=== PATIENT | female | born 1990 | race Caucasian/White ===

== ENCOUNTER 2021-09-02 23:08 | Emergency (ER) | payer OTHER, SELFPAY ==
--- NOTE | ~2021-09-02 | XR_ITS ---
EXAMINATION: XR chest 2V DATE: 09/02/2021 23:42 INDICATION: Palpitations. TECHNIQUE: Frontal and lateral views of the chest were obtained. COMPARISON: CT abdomen and pelvis 10/02/2015 FINDINGS: The chest demonstrates clear lungs without pneumonia, pleural effusion, or pneumothorax. Th e heart size is normal. IMPRESSION: 1. No acute cardiopulmonary disease. Reviewed, dictated and finalized at location A.
--- NOTE | 2021-09-02 23:13 | ECG_ITS ---
Measurements Intervals [place] Rate: 78 P: 9 WA: 158 QRS: 24 QRSD: 73 T: 14 QT: 364 QTc: 415 Interpretive Statements SINUS RHYTHM NORMAL ECG Electronically Signed On 09-03-2021 6:17:19 CDT by Tin Ontiveros D.O.
[2021-09-02 23:15] VITALS: BP 145/94; PULSE 77; RESP 16; TEMP 36.3; O2SAT 100
[2021-09-03] VITALS (15 sets, daily range): BP systolic 116–138; BP diastolic 82–92; PULSE 74–82; RESP 12–23; TEMP 36.7; O2SAT 98–100
[2021-09-03 00:14] LABS: Basophils Absolute Auto 0.1 K/mm3 (0.0-0.1); Basophils Percent Auto 0.6 % (0.2-1.2); Eosinophils Absolute Auto 0.1 K/mm3 (0-0.3); Hematocrit 42.5 % (37.0-47.0); Hemoglobin 14.4 g/dL (12.0-15.0); Immature Granulocyte Absolute 0.05 K/mm3 (0.00-0.031); Immature Granulocyte Percent A 0.4 % (0-0.5); Lymphocytes Absolute Auto 3.29 K/mm3 (0.9-3.2); Lymphocytes Percent Auto 28.5 % (18.3-44.2); Mean Corpuscular HGB Conc 33.9 g/dl (32-36); Mean Corpuscular Hemoglobin 30.4 pg (26-34); Mean Corpuscular Volume 89.7 fl (80-100); Mean Platelet Volume 8.7 fl (7.4-10.4); Monocytes Absolute Auto 0.7 K/mm3 (0.1-0.6); Monocytes Percent Auto 5.8 % (2.6-8.5); Neutrophils Absolute Auto 7.3 K/mm3 (1.3-6.7); Neutrophils Percent Auto 63.7 % (45.5-73.1); Platelet Count Result 255 k/mm3 (150-375); Red Blood Count 4.74 M/mm3 (4.2-5.4); Red Cell Distribution Width 11.9 % (11.5-14.5); White Blood Count 11.5 K/mm3 (4.5-10.0)
[2021-09-03 00:28] LABS: Prothrombin Time 12.8 Seconds (11.1-14.7)
[2021-09-03 00:30] LABS: Anion Gap 8 mmol/L (8-16); Blood Urea Nitrogen 11 mg/dL (7-17); Carbon Dioxide 27 mmol/L (22-30); Chloride 106 mmol/L (98-107); Estimated CRCL calculation 101 ml/min; Estimated Glomerular Filt Rate > 60; Glucose 91 mg/dL (65-110); Potassium 3.7 mmol/L (3.4-5.0); Sodium 141 mmol/L (137-145)
[2021-09-03 00:41] LABS: Partial Thromboplastin Time 28.5 SECONDS (22.3-36.8)
[2021-09-03 00:43] LABS: Troponin I < 0.012 ng/mL (0.000-0.034)
--- NOTE | 2021-09-03 01:29 | PC.NURSE ---
Pt c/o palpitations x 2 episodes that lasted approx 30-40 seconds. 1st episode yesterday morning, reports heart felt fluttery . denies chest pain. last episode happened before arrival in ed. no distress. on airplane fueler. call light in reach.
[2021-09-03 02:40] LABS: Magnesium 2.3 mg/dL (1.6-2.3)
[2021-09-03 02:44] LABS: D Dimer 0.35 ug/mL (<0.48)
[2021-09-03 03:02] LABS: Troponin I < 0.012 ng/mL (0.000-0.034)
--- NOTE | 2021-09-03 03:06 | ED.ARRPALP ---
HPI - Arrhythmia/Palpitations General Chief Complaint: Arrhythmia/Palpitations Stated Complaint: Palpitations, nauesa Time Seen by Provider: 09/03/21 02:05 Source: patient, family and RN notes reviewed Mode of arrival: ambulatory Limitations: no limitations History of Present Illness HPI narrative: This is a 31 year old female who presents for evaluation of palpitations. Patient reports she has had 2 episodes over the past couple of days with palpitations. Tonight around 10 pm she develop feeling of heart fluttering with nausea, dizziness and jaw discomfort. This episode lasted 30 seconds. Her father states he placed pulse oximeter on her finger and it read her heart rate at 130. He also performed EKG but it was normal sinus rhythm with normal rate. Patient denies chest pain or shortness of breath. She denies having any symptoms any other time. She has not previous history of SVT or arrhythmia. Her last dose of covid vaccine was 3 weeks ago. Related Data Home Medications Medication Instructions Recorded Confirmed No Home Medications 09/03/21 09/03/21 Allergies Allergy/AdvReac Type Severity Reaction Status Date / Time No Known Allergies Allergy Verified 09/03/21 01:21 Review of Systems Review of Systems: All systems reviewed & are unremarkable except as noted in HPI and below PMFSH Past Medical History Medical History (Updated 09/03/21 @ 03:12 by Patricia Root MD) Kidney stone Family History Family History (Updated 06/14/16 @ 23:21 by DOCTOR UNKNOWN) Father Patient's father is in good health Mother Family history of type 2 diabetes mellitus Grandparent Family history of heart disease in male family member before age 55 Social History Social History Smoking status: Never smoker Alcohol intake: current Exam Const: General: no acute distress and alert Orientation/consciousness: patient oriented x3 Eyes: EOM: EOMs intact bilaterally Resp: Effort & Inspection: normal respiratory effort and no retractions Auscultation: clear to auscultation bilaterally Cardio: Rate: regular rate Rhythm: regular rhythm Heart sounds: no murmurs GI: GI Palp: Yes Soft to palpation, No Tenderness to palpation present (GI) and No Guarding due to palpation present (GI) Auscultation: normal bowel sounds Skin: General skin exam: normal color Rashes: no rashes Neuro: General: patient oriented x3, moves all extremities and CN's II-XI intact bilaterally Psych: Mental Status: mental status grossly normal Affect: normal affect Course Reevaluation(s) Reevaluation #1: I reviewed with patient and father that labs and ekg were normal. She will follow up with PCP for possible holter monitor. Date: 09/03/21 Time: 03:11 Vital Signs Vital signs: Vital Signs Temperature 97.3 F L 09/02/21 23:15 Pulse Rate 77 09/02/21 23:15 Respiratory Rate 16 09/02/21 23:15 Blood Pressure 145/94 H 09/02/21 23:15 Pulse Oximetry 100 09/02/21 23:15 Temperature 98.0 F 09/03/21 03:36 Pulse Rate 76 09/03/21 03:36 Respiratory Rate 18 09/03/21 03:36 Blood Pressure 138/82 09/03/21 03:36 Pulse Oximetry 98 09/03/21 03:36 MDM - Arrhythmia/Palpitations Lab Data Attestation: I reviewed the patient's lab results. Result diagrams: 09/02/21 23:21 09/02/21 23:21 Labs: Lab Results 09/02/21 09/02/21 09/02/21 Range/Units 23:21 23:21 23:21 WBC 11.5 H (4.5-10.0) K/mm3 RBC 4.74 (4.2-5.4) M/mm3 Hgb 14.4 (12.0-15.0) g/dL Hct 42.5 (37.0-47.0) % MCV 89.7 (80-100) fl MCH 30.4 (26-34) pg MCHC 33.9 (32-36) g/dl RDW 11.9 (11.5-14.5) % Plt Count 255 (150-375) k/mm3 MPV 8.7 (7.4-10.4) fl Immature Gran % (Auto) 0.4 (0-0.5) % Neut % (Auto) 63.7 (45.5-73.1) % Lymph % (Auto) 28.5 (18.3-44.2) % [place] % (Auto) 5.8 (2.6-8.5) % Eos % (Auto) 1.0 (0-4.4) % Baso % (Auto) 0.6
== END 2021-09-03 03:38 | disposition home or self-care (01) ==
PROVIDERS: Emergency Provider General Practice; PCP Internal Medicine
DX: R00.2 Palpitations (principal)
CPT/HCPCS: 36415; 71046; 80048; 83735; 84484; 85025; 85380; 85610; 85730; 93005; 99284

== ENCOUNTER 2023-04-26 19:47 | Emergency (ER) | payer OTHER, SELFPAY ==
[2023-04-26] VITALS (7 sets, daily range): BP systolic 121–151; BP diastolic 83–96; PULSE 69–84; RESP 15–26; TEMP 36.6; O2SAT 97–100
--- NOTE | ~2023-04-26 | CT_ITS ---
EXAMINATION: CT abdomen pelvis w con DATE: 04/27/2023 00:12 INDICATION: Epigastric pain. Left upper quadrant pain. TECHNIQUE: Computed tomography (CT) of the abdomen and pelvis was performed with 100 cc Omnipaque 350 intravenous contrast. The dose-length product was 1468.83 mGy-cm. Automated exposure control and ite rative reconstruction technique were employed. COMPARISON: CT dated 10/02/2015 FINDINGS: Lung bases are unremarkable. Heart size normal. No significant pleural or pericardial effus ion. There are gallstones. The liver, spleen, pancreas, adrenal glands and kidneys are unremarkable. There are gallstones. Nonob structive bowel pattern. No free air or free fluid. No abnormal pelvic masses or fluid collections. N o significant vascular abnormality. No lymphadenopathy. No acute osseous abnormality. IMPRESSION: 1. No acute abdominal abnormality. 2: Cholelithiasis. Reviewed, dictated and finalized at location A.
[2023-04-26 20:03] LABS: Basophils Absolute Auto 0.1 K/mm3 (0.0-0.1); Basophils Percent Auto 0.8 % (0.2-1.2); Eosinophils Absolute Auto 0.3 K/mm3 (0-0.3); Eosinophils Percent Auto 2.6 % (0-4.4); Hematocrit 44.9 % (37.0-47.0); Hemoglobin 15.4 g/dL (12.0-15.0); Immature Granulocyte Absolute 0.04 K/mm3 (0.00-0.031); Immature Granulocyte Percent A 0.4 % (0-0.5); Lymphocytes Absolute Auto 3.45 K/mm3 (0.9-3.2); Lymphocytes Percent Auto 31.6 % (18.3-44.2); Mean Corpuscular HGB Conc 34.3 g/dl (32-36); Mean Corpuscular Hemoglobin 30.3 pg (26-34); Mean Corpuscular Volume 88.2 fl (80-100); Mean Platelet Volume 8.4 fl (7.4-10.4); Monocytes Absolute Auto 0.7 K/mm3 (0.1-0.6); Monocytes Percent Auto 6.3 % (2.6-8.5); Neutrophils Absolute Auto 6.4 K/mm3 (1.3-6.7); Neutrophils Percent Auto 58.3 % (45.5-73.1); Platelet Count Result 253 k/mm3 (150-375); Red Blood Count 5.09 M/mm3 (4.2-5.4); White Blood Count 10.9 K/mm3 (4.5-10.0)
[2023-04-26 20:14] LABS: Alanine Aminotransferase 17 U/L (6-35); Albumin Level 4.3 g/dL (3.5-5.1); Alkaline Phosphatase 83 U/L (38-126); Anion Gap 7 mmol/L (8-16); Aspartate Amino Transferase 23 U/L (14-36); Bilirubin,Total 0.7 mg/dL (0.2-1.3); Blood Urea Nitrogen 10 mg/dL (7-17); Calcium 8.4 mg/dL (8.4-10.2); Carbon Dioxide 27 mmol/L (22-30); Chloride 103 mmol/L (98-107); Estimated CRCL calculation 97 ml/min; Estimated Glomerular Filt Rate > 60; Glucose 102 mg/dL (65-110); Lipase 104 U/L (23-300); Potassium 3.5 mmol/L (3.4-5.0); Sodium 137 mmol/L (137-145)
[2023-04-26 20:21] LABS: Appearance Urine Cloudy (Clear); Bacteria Urine 4+ /hpf; Bilirubin Urine Negative (Negative); Blood Urine Negative (Negative); Color Urine Yellow (Yellow); Glucose Urine UA Negative (Negative); Hyaline Casts Urine Present /lpf; Ketones Urine Negative (Negative); Leukocyte Esterase Ur 1+ LEU/UL (Negative); Nitrate Urine Negative (Negative); Protein Urine Negative (Negative); Specific Grav Ur 1.017 (1.001-1.035); Squamous Epithelial Cell Urine Occasional /hpf (Few); Urobilinogen Urine 0.2 mg/dL (<2.0); pH Urine 5.5 (5.0-9.0)
[2023-04-26 20:23] LABS: Add Urine Microscopic? YES
--- NOTE | 2023-04-26 23:08 | ED.ABDPAIN ---
HPI - Abdominal Pain General Chief Complaint: Abdominal Pain Stated Complaint: left pain under ribs, abd pain Time Seen by Provider: 04/26/23 22:31 Source: patient Mode of arrival: ambulatory Limitations: no limitations History of Present Illness HPI narrative: Patient is a 32 y/o female who presents to the ED with c/o L upper abdominal pain. Patient reports having intermittent pain over the last 2 days. Pain became worse today after eating lunch and she developed nausea, which prompted her presentation. She thought it may be related to acid reflux at first, but denied improvement with her medications at home. Denied any vomiting. Denies fevers. Denies urinary symptoms. Denies diarrhea, constipation, rectal bleeding. Denies chest pain or difficulty breathing. She reports history of kidney stones, but states pain does not feel similar. Related Data Home Medications Medication Instructions Recorded Confirmed ibuprofen 200 mg tablet (Advil) 200 mg PO Q6H PRN 07/05/22 04/15/23 lansoprazole 15 mg capsule,delayed 15 mg PO DAILY 07/05/22 04/15/23 release Allergies Allergy/AdvReac Type Severity Reaction Status Date / Time poison myles extract Allergy Swelling Verified 04/26/23 19:47 of Lip/Tongue/Throat poison oak extract Allergy Swelling Verified 04/26/23 19:47 poison sumac extract Allergy Swelling Verified 04/26/23 19:47 Review of Systems Review of Systems: CONSTITUTIONAL: Denies fever, chills, or sweats. CARDIOVASCULAR: Denies chest pain. RESPIRATORY: Denies dyspnea. GASTROINTESTINAL: See HPI. GENITOURINARY: Denies dysuria or hematuria. SKIN: Denies rash or itching. MUSCULOSKELETAL: Denies back pain, joint pain, or myalgia. All systems reviewed & are unremarkable except as noted in HPI and below [facility] Past Medical History Medical History History of knee sprain Kidney stone Women's annual routine gynecological examination Surgical History Surgical History Hx of wisdom tooth extraction 2005 Family History Family History (Updated 07/05/22 @ 09:28 by Sanaz Morfin MA) Father Leukemia Mother Family history of type 2 diabetes mellitus Grandparent Family history of heart disease in male family member before age 55 Cerebrovascular accident Social History Social History Smoking status: Never smoker Second hand tobacco smoke exposure: Yes Alcohol intake: current Drinks per week: 1 Alcohol use details: wine Substance use: current Substance use type: does not use Exam Narrative: GENERAL: Well appearing, obese with BMI of 38.7, non-toxic, in no acute distress. HEAD: Normocephalic, atraumatic. NECK: Supple. No adenopathy, no masses. RESPIRATORY: Airway patent, respirations nonlabored. Clear to auscultation bilaterally, no rales, rhonchi, wheezing. CARDIOVASCULAR: Regular rate and rhythm without murmurs, rubs, or gallops. Radial pulses 2+ and equal bilaterally. ABDOMINAL: Soft, mild tenderness to palpation in epigastric region and left upper abdomen, no rebound, nondistended, no hepatosplenomegaly. Normoactive BS. MUSCULOSKELETAL: Moves all extremities. Strength/ROM intact without gross deformities. SKIN: Warm, dry, normal color. No rashes. NEURO: A&O X3. Speech clear. Cranial nerves II-XII grossly intact. Steady gait. No ataxic movements. PSYCHIATRIC: Appropriate mood and affect. Normal interaction. Course Vital Signs Vital signs: Vital Signs Temperature 97.8 F 04/26/23 19:50 Pulse Rate 79 04/26/23 19:50 Respiratory Rate 16 04/26/23 19:50 Blood Pressure 151/96 H 04/26/23 19:50 Pulse Oximetry 100 04/26/23 19:50 Oxygen Delivery Room Air 04/26/23 19:50 Temperature 97.8 F 04/26/23 19:50 Pulse Rate 85 04/27/23 00:10 Respiratory Rate 16
[2023-04-26 23:45] LABS: Pregnancy On Board Control Positive; Urine Pregnancy Test Negative
[2023-04-26] MEDS: PANTOPRAZOLE SODIUM IV 40 MG VIAL IV PUSH (23:48)
[2023-04-26] MEDS: SODIUM CHLORIDE 0.9% IV 1,000 ML 999 ML IV CONT (23:48)
[2023-04-26] MEDS: ACETAMINOPHEN 500 MG TABLET 1000 MG PO (23:50)
[2023-04-26] MEDS: BELLADONNA ALK/PHENOB ELIX 10 ML, MAG HYDROX/ALUMINUM HYD/SIMETH 30 ML, LIDOCAINE HCL 2... PO (23:52)
[2023-04-27 00:10] VITALS: PULSE 85; RESP 16; O2SAT 100
[2023-04-27 02:08] VITALS: BP 137/89; PULSE 87; RESP 25; O2SAT 100
[2023-04-27] MEDS: CEPHALEXIN 500 MG CAPSULE PO (02:16)
== END 2023-04-27 02:20 | disposition home or self-care (01) ==
PROVIDERS: Emergency Medicine; Emergency Provider Physician Assistant; PCP Nurse Practitioner Family
DX: K80.20 Calculus of gallbladder without cholecystitis without obstruction (principal); N30.01 Acute cystitis with hematuria; R10.12 Left upper quadrant pain
CPT/HCPCS: 36415; 74177; 80053; 81001; 81025; 83690; 85025; 87086; 96361; 96374; 99284; A9270; C9113; J7030; Q9967

== ENCOUNTER 2023-05-01 09:24 | Observation (INO) | payer OTHER, SELFPAY ==
[2023-05-01] VITALS (9 sets, daily range): BP systolic 126–164; BP diastolic 88–110; PULSE 61–90; RESP 12–23; TEMP 36.1–36.6; O2SAT 98–100
--- NOTE | ~2023-05-01 | US_ITS ---
US abdomen limited INDICATION: Epigastric pain. Gallstones. PROCEDURE: Realtime right upper abdominal ultrasound. COMPARISON: No prior studies for comparison. FINDINGS: The pancreas is normal without focal mass or pancreatic ductal dilation. Liver echotexture is normal without focal mass or intrahepatic biliary dilatation. There is normal directional flow i n the portal vein. Gallbladder contains sludge and gallstones. Common bile duct measures 5.8 mm. Positive sonographic Moran's sign. IMPRESSION: 1: Gallbladder sludge with gallstones. Positive sonographic Moran's sign. Consider cholecystitis in the appropriate clinical setting. Reviewed, dictated and finalized at location L. IMPRESSION: 1: Gallbladder sludge with gallstones. Positive sonographic Moran's sign. Cons ider cholecystitis in the appropriate clinical setting.
[2023-05-01 10:09] LABS: Basophils Absolute Auto 0.1 K/mm3 (0.0-0.1); Basophils Percent Auto 0.9 % (0.2-1.2); Eosinophils Absolute Auto 0.2 K/mm3 (0-0.3); Eosinophils Percent Auto 1.7 % (0-4.4); Hematocrit 44.4 % (37.0-47.0); Hemoglobin 15.8 g/dL (12.0-15.0); Immature Granulocyte Absolute 0.07 K/mm3 (0.00-0.031); Immature Granulocyte Percent A 0.6 % (0-0.5); Lymphocytes Percent Auto 16.6 % (18.3-44.2); Mean Corpuscular HGB Conc 35.6 g/dl (32-36); Mean Corpuscular Hemoglobin 30.8 pg (26-34); Mean Corpuscular Volume 86.5 fl (80-100); Mean Platelet Volume 8.6 fl (7.4-10.4); Monocytes Absolute Auto 0.6 K/mm3 (0.1-0.6); Monocytes Percent Auto 5.3 % (2.6-8.5); Neutrophils Absolute Auto 8.1 K/mm3 (1.3-6.7); Neutrophils Percent Auto 74.9 % (45.5-73.1); Platelet Count Result 260 k/mm3 (150-375); Red Blood Count 5.13 M/mm3 (4.2-5.4); Red Cell Distribution Width 11.9 % (11.5-14.5); White Blood Count 10.9 K/mm3 (4.5-10.0)
[2023-05-01 10:13] LABS: Appearance Urine Cloudy (Clear); Bacteria Urine None Seen /hpf; Bilirubin Urine Negative (Negative); Blood Urine Negative (Negative); Color Urine Yellow (Yellow); Glucose Urine UA Negative (Negative); Ketones Urine Negative (Negative); Leukocyte Esterase Ur Trace LEU/UL (Negative); Nitrate Urine Negative (Negative); Non Pathogenic Casts 0-2; Protein Urine Trace mg/dL (Negative); Specific Grav Ur 1.022 (1.001-1.035); Squamous Epithelial Cell Urine Few /hpf (Few); WBC Urine 0-5 /hpf; pH Urine 5.5 (5.0-9.0)
[2023-05-01 10:19] LABS: Alanine Aminotransferase 16 U/L (6-35); Albumin Level 4.3 g/dL (3.5-5.1); Alkaline Phosphatase 92 U/L (38-126); Anion Gap 10 mmol/L (8-16); Aspartate Amino Transferase 23 U/L (14-36); Bilirubin,Total 0.9 mg/dL (0.2-1.3); Blood Urea Nitrogen 8 mg/dL (7-17); Calcium 8.9 mg/dL (8.4-10.2); Carbon Dioxide 21 mmol/L (22-30); Chloride 108 mmol/L (98-107); Estimated CRCL calculation 97 ml/min; Estimated Glomerular Filt Rate > 60; Glucose 103 mg/dL (65-110); Lipase 60 U/L (23-300); Potassium 3.7 mmol/L (3.4-5.0); Sodium 139 mmol/L (137-145)
[2023-05-01 10:27] LABS: Add Urine Microscopic? YES
[2023-05-01] MEDS: ONDANSETRON INJ 4 MG/2 ML VIAL IV PUSH ×2 (10:42→11:32)
[2023-05-01] MEDS: MORPHINE SULFATE (*CRX) 4 MG/ML INJ IV PUSH (10:45)
[2023-05-01] MEDS: PANTOPRAZOLE SODIUM IV 40 MG VIAL IV PUSH (10:52)
--- NOTE | 2023-05-01 11:48 | ED.ABDPAIN ---
HPI - Abdominal Pain General Chief Complaint: Abdominal Pain Stated Complaint: Gallbladder Time Seen by Provider: 05/01/23 09:43 Source: patient, RN notes reviewed and old records reviewed Mode of arrival: ambulatory Limitations: no limitations History of Present Illness HPI narrative: This is a 32 year old female who presents for evaluation of abdominal pain. She reports approximately 1.5 weeks ago she developed heart burn that was intermittent. Then 1 week ago she developed epigastric abdominal pain that radiated to her left upper abdomen. She took prevacid for 1 week without relief. She has been takin ibuprofen for her pain. She reports nausea and vomiting with her pain. She was evaluated in ER a few days ago with labs and CT Abdomen and pelvis. CT showed gallstones and she was discharged on antibiotics for UTI. She reports GI cocktail on last ER visit help her pain. She has returned because her pain is getting worsen. Related Data Home Medications Medication Instructions Recorded Confirmed ibuprofen 200 mg tablet (Advil) 200 mg PO Q6H PRN 07/05/22 04/15/23 lansoprazole 15 mg capsule,delayed 15 mg PO DAILY 07/05/22 04/15/23 release Allergies Allergy/AdvReac Type Severity Reaction Status Date / Time poison myles extract Allergy Swelling Verified 04/26/23 19:47 of Lip/Tongue/Throat poison oak extract Allergy Swelling Verified 04/26/23 19:47 poison sumac extract Allergy Swelling Verified 04/26/23 19:47 Review of Systems Review of Systems: All systems reviewed & are unremarkable except as noted in HPI and below Gastrointestinal: Gastrointestinal: Reports abdominal pain, Reports nausea and Reports vomiting PMFSH Past Medical History Medical History History of knee sprain Kidney stone Women's annual routine gynecological examination Surgical History Surgical History Hx of wisdom tooth extraction 2005 Family History Family History Father Leukemia Mother Family history of type 2 diabetes mellitus Grandparent Family history of heart disease in male family member before age 55 Cerebrovascular accident Social History Social History Smoking status: Never smoker Second hand tobacco smoke exposure: Yes Alcohol intake: never Drinks per week: 1 Alcohol use details: wine Substance use: never Substance use type: does not use Lack of Transportation: No Lack of Food: Never True Current Housing: I Have Housing Concerned About Future Housing: No Difficulty Paying Gas/Electric Bills: No Difficulty Paying for Meds: No Currently Unemployed: No Education: Bachelor's Degree Difficulty w/ Childcare or Family Care: No Spiritual care concerns: No Exam Const: General: no acute distress and alert Nutritional Appearance: well nourished Orientation/consciousness: patient oriented x3 HENMT: Head: normal to inspection Eyes: EOM: EOMs intact bilaterally Chest: Chest palpation & inspection: normal inspection of the chest Resp: Effort & Inspection: normal respiratory effort Auscultation: clear to auscultation bilaterally Cardio: Rate: regular rate Rhythm: regular rhythm Heart sounds: no murmurs GI: GI Palp: Yes Soft to palpation and Yes Tenderness to palpation present (GI) (RUQ, epigastric, LUQ worse on epigastric and LUQ) Auscultation: normal bowel sounds : General: Yes no CVA tenderness Skin: General skin exam: normal color Rashes: no rashes Wounds: no wounds Neuro: General: patient oriented x3, moves all extremities and CN's II-XI intact bilaterally Psych: Mental Status: mental status grossly normal Course Reevaluation(s) Reevaluation #1: Dr. Lott came down to ER to assess patient. He states to admit patient to his service
--- NOTE | 2023-05-01 13:02 | PM.IMHP ---
H&P: HPI History of Present Illness Date/Time: 05/01/23 13:02 Chief Complaint: Upper abdominal pain Narrative: Patient is a 32-year-old woman who for the last week has been troubled with almost nonstop episodes of epigastric abdominal pain that radiates to the left upper quadrant. This started over a week ago. She was in the emergency room on 04/27 with these symptoms and CT scan showed gallstones but no evidence of cholecystitis. She continued to have the pain off and on and came back to the emergency room today. She has been very uncomfortable even after analgesics. Morphine is taken the edge off the pain but did not relieve it entirely. Ultrasound done today shows gallstones and sludge with a positive sonographic Moran sign and suggests acute cholecystitis with gallstones. She is admitted now for IV antibiotics and analgesics with plans to proceed with laparoscopic cholecystectomy tomorrow morning. She has had no previous abdominal [place] [address]. Liver function tests and lipase are normal. Review of Systems Review of Systems: All systems reviewed & are unremarkable except as noted in HPI and below (HPI and those items noted below) Constitutional: Constitutional: Denies chills and Denies fever(s) Cardiovascular: Cardiovascular: Denies chest pain, Denies diaphoresis, Denies dyspnea and Denies paroxysmal nocturnal dyspnea Respiratory: Respiratory: Denies chest congestion, Denies cough and Denies dyspnea Integumentary/Breasts: Skin/Breast: Denies lesions and Denies rash PMFSH Past Medical History Medical History History of knee sprain Kidney stone Women's annual routine gynecological examination Surgical History Surgical History Hx of wisdom tooth extraction 2005 Family History Family History Father Leukemia Mother Family history of type 2 diabetes mellitus Grandparent Family history of heart disease in male family member before age 55 Cerebrovascular accident Social History Social History Smoking status: Never smoker Second hand tobacco smoke exposure: Yes Alcohol intake: current Drinks per week: 1 Alcohol use details: wine Substance use: current Substance use type: does not use Meds Home Medications and Allergies Home Medications Medication Instructions Recorded Confirmed Type ibuprofen 200 mg tablet (Advil) 200 mg PO Q6H PRN 07/05/22 04/15/23 History lansoprazole 15 mg capsule,delayed 15 mg PO DAILY 07/05/22 04/15/23 History release medroxyprogesterone 150 mg/mL 150 mg IM [id number] #1 mL 12/13/22 04/15/23 Rx intramuscular suspension cephalexin 500 mg capsule 500 mg PO Q6H 7 days #28 caps 04/27/23 Rx Allergies Allergy/AdvReac Type Severity Reaction Status Date / Time poison myles extract Allergy Swelling Verified 04/26/23 19:47 of Lip/Tongue/Throat poison oak extract Allergy Swelling Verified 04/26/23 19:47 poison sumac extract Allergy Swelling Verified 04/26/23 19:47 Vital Signs Vital Signs - 24 hr 05/01/23 09:29 05/01/23 11:15 05/01/23 12:02 Temperature 36.6 C Pulse Rate 89 62 67 Respiratory Rate 18 12 13 Blood Pressure 164/110 H 131/95 H 138/101 H Pulse Oximetry 99 100 100 Oxygen Delivery Room Air 05/01/23 12:08 05/01/23 12:47 Temperature Pulse Rate 62 69 Respiratory Rate 23 H 19 Blood Pressure 147/105 H 126/92 H Pulse Oximetry 98 100 Oxygen Delivery Exam Const: General: cooperative, no acute distress, alert, awake, uncomfortable and overweight Nutritional Appearance: overweight Orientation/consciousness: patient oriented x3 HENMT: Head: normocephalic and atraumatic Mouth: Yes Normal oral and palatal mucosa present Eyes: Conjunctivae: conjunctivae normal Pupils:
[2023-05-01] MEDS: ENOXAPARIN 40 MG/0.4 ML SYRINGE SUB-Q (15:41)
[2023-05-01] MEDS: PROCHLORPERAZINE EDISYLATE 10 MG/2 ML VIAL IV PUSH ×2 (15:41→21:31)
[2023-05-01] MEDS: PIPERACILLN/TAZ 3.375GM/NS50ML 3.375 GM/50 ML BAG IVPB (15:41)
[2023-05-01] MEDS: LACTATED RINGERS 1,000 ML 80 ML IV CONT (15:41)
[2023-05-01] MEDS: FAMOTIDINE 20 MG/2 ML VIAL IV PUSH (20:31)
[2023-05-02] VITALS (14 sets, daily range): BP systolic 119–138; BP diastolic 74–91; PULSE 76–97; RESP 14–22; TEMP 36.4–37; O2SAT 95–100
[2023-05-02] MEDS: LACTATED RINGERS 1,000 ML 80 ML IV CONT ×2 (05:03)
[2023-05-02] MEDS: PIPERACILLN/TAZ 3.375GM/NS50ML 3.375 GM/50 ML BAG IVPB ×3 (05:13→12:35)
[2023-05-02] MEDS: HYDROmorphone HCL INJ (*CRX) 1 MG/ML SYR IV PUSH (05:13)
[2023-05-02] MEDS: PROCHLORPERAZINE EDISYLATE 10 MG/2 ML VIAL IV PUSH (05:13)
[2023-05-02 06:06] LABS: Hemoglobin 13.9 g/dL (12.0-15.0); Mean Corpuscular HGB Conc 34.8 g/dl (32-36); Mean Corpuscular Hemoglobin 30.7 pg (26-34); Mean Corpuscular Volume 88.3 fl (80-100); Mean Platelet Volume 8.6 fl (7.4-10.4); Platelet Count Result 191 k/mm3 (150-375); Red Blood Count 4.53 M/mm3 (4.2-5.4); Red Cell Distribution Width 11.9 % (11.5-14.5); White Blood Count 13.8 K/mm3 (4.5-10.0)
[2023-05-02 06:22] LABS: Alanine Aminotransferase 15 U/L (6-35); Albumin Level 3.5 g/dL (3.5-5.1); Alkaline Phosphatase 71 U/L (38-126); Anion Gap 7 mmol/L (8-16); Aspartate Amino Transferase 19 U/L (14-36); Bilirubin,Total 1.5 mg/dL (0.2-1.3); Blood Urea Nitrogen 7 mg/dL (7-17); Calcium 8.1 mg/dL (8.4-10.2); Carbon Dioxide 24 mmol/L (22-30); Chloride 106 mmol/L (98-107); Estimated CRCL calculation 108 ml/min; Estimated Glomerular Filt Rate > 60; Glucose 133 mg/dL (65-110); Potassium 3.7 mmol/L (3.4-5.0); Sodium 137 mmol/L (137-145)
--- NOTE | 2023-05-02 09:00 | PC.NURSE ---
Pt transported to surgery at 0900.
[2023-05-02] MEDS: LACTATED RINGERS 1,000 ML 30 ML IV CONT ×2 (09:15→12:09)
[2023-05-02] MEDS: ACETAMINOPHEN 500 MG TABLET 1000 MG PO (09:31)
--- NOTE | 2023-05-02 09:31 | WPDHPUPDATE1 ---
History and Physical Update Update Date/Time: 05/02/23 09:31 History and Physical has been reviewed, including an updated exam of the patient. There are NO changes in the patient's condition. Risks, benefits, and alternatives have been discussed and questions answered. Patient agrees to proceed with procedure.
[2023-05-02] MEDS: KETOROLAC 15 MG/ML VIAL (*BKC) IV PUSH (09:34)
--- NOTE | 2023-05-02 10:05 | WPDANESEPPF ---
Anes - Initial Pre Proc Eval Procedure: Operation Date: 05/02/23 10:30 Proposed Procedures p Laparoscopic Cholecystectomy - Adam Lott MD Date/Time: 05/02/23 10:05 Surgeon: Cindi Brito DO Pre Op Diagnosis: ACUTE CHOLECYSTITIS Patient Data Age: 32 Gender: F Height: 1.68 m Weight: 107 kg Last Vital Signs Temp 37.0 C 05/02/23 09:12 Pulse 86 05/02/23 09:12 Resp 16 05/02/23 09:12 BP 138/91 H 05/02/23 09:12 Pulse Ox 99 05/02/23 09:12 O2 Del Method Room Air 05/02/23 09:12 Allergies Allergy/AdvReac Type Severity Reaction Status Date / Time poison myles extract Allergy Swelling Verified 04/26/23 19:47 of Lip/Tongue/Throat poison oak extract Allergy Swelling Verified 04/26/23 19:47 poison sumac extract Allergy Swelling Verified 04/26/23 19:47 Home Medications Medication Instructions Recorded Confirmed Type ibuprofen 200 mg tablet (Advil) 200 mg PO Q6H PRN 07/05/22 04/15/23 History lansoprazole 15 mg capsule,delayed 15 mg PO DAILY 07/05/22 04/15/23 History release medroxyprogesterone 150 mg/mL 150 mg IM [id number] #1 mL 12/13/22 04/15/23 Rx intramuscular suspension cephalexin 500 mg capsule 500 mg PO Q6H 7 days #28 caps 04/27/23 Rx Laboratory Tests 05/01/23 05/01/23 05/02/23 10:02 15:09 06:01 WBC 10.9 H K/mm3 13.8 H K/mm3 (4.5-10.0) (4.5-10.0) RBC 5.13 M/mm3 4.53 M/mm3 (4.2-5.4) (4.2-5.4) Hgb 15.8 H g/dL 13.9 g/dL (12.0-15.0) (12.0-15.0) Hct 44.4 % 40.0 % (37.0-47.0) (37.0-47.0) MCV 86.5 fl 88.3 fl (80-100) (80-100) MCH 30.8 pg 30.7 pg (26-34) (26-34) MCHC 35.6 g/dl 34.8 g/dl (32-36) (32-36) RDW 11.9 % 11.9 % (11.5-14.5) (11.5-14.5) Plt Count 260 k/mm3 191 k/mm3 (150-375) (150-375) MPV 8.6 fl 8.6 fl (7.4-10.4) (7.4-10.4) Immature Gran % (Auto) 0.6 H % (0-0.5) Neut % (Auto) 74.9 H % (45.5-73.1) Lymph % (Auto) 16.6 L % (18.3-44.2) [place] % (Auto) 5.3 % (2.6-8.5) Eos % (Auto) 1.7 % (0-4.4) Baso % (Auto) 0.9 % (0.2-1.2) Lymph # (Auto) 1.80 K/mm3 (0.9-3.2) [place] # (Auto) 0.6 K/mm3 (0.1-0.6) Eos # (Auto) 0.2 K/mm3 (0-0.3) Baso # (Auto) 0.1 K/mm3 (0.0-0.1) Abs Immat Gran (auto) 0.07 H K/mm3 (0.00-0.031) Absolute Neuts (auto) 8.1 H K/mm3 (1.3-6.7) Absolute Nucleated RBC 0.0 K/mm3 (0.0-0.012) Nucleated RBC % 0.0 % (0.0-0.2) Sodium 139 mmol/L 137 mmol/L (137-145) (137-145) Potassium 3.7 mmol/L 3.7 mmol/L (3.4-5.0) (3.4-5.0) Chloride 108 H mmol/L 106 mmol/L (98-107) (98-107) Carbon Dioxide 21 L mmol/L 24 mmol/L (22-30) (22-30) Anion Gap 10 mmol/L 7 L mmol/L (8-16) (8-16) BUN 8 mg/dL 7 mg/dL (7-17) (7-17) Creatinine 0.90 mg/dL 0.80 mg/dL (0.7-1.0) (0.7-1.0) Estim Creat Clear Calc 97 ml/min 108 ml/min Estimated GFR > 60 > 60 (59 - ) (59 - ) Glucose 103 mg/dL 133 H mg/dL (65-110) (65-110) Calcium 8.9 mg/dL 8.1 L mg/dL (8.4-10.2) (8.4-10.2) Total Bilirubin 0.9 mg/dL 1.5 H mg/dL (0.2-1.3) (0.2-1.3) AST 23 U/L 19 U/L (14-36) (14-36) ALT 16 U/L 15 U/L (6-35) (6-35) Alkaline Phosphatase 92 U/L 71 U/L (38-126) (38-126) Total Protein 8.0 g/dL 7.0 g/dL (6.3-8.2) (6.3-8.2) Albumin 4.3 g/dL 3.5 g/dL (3.5-5.1) (3.5-5.1) Lipase 60 U/L (23-300) Urine Color Yellow (Yellow) Urine Appearance Cloudy H (Clear) Urine pH 5.5 (5.0-9.0) Ur Specific [place] 1.022 (1.001-1.035) Urine Protein Trace mg/dL (Negative) Urine Glucose (UA) Negative mg/dL (Negative) Urine Ketones Negative mg/dL (Negative) Ur Blood (Man) Negativ
[2023-05-02] MEDS: BUPIVACAINE/EPINEPHRINE 0.5% 50 ML VIAL 30 ML INFILTRATE (11:17)
--- NOTE | 2023-05-02 12:16 | W.PM.PROC2 ---
Procedure Note - Detailed Date of Procedure 05/02/23 Pre-op Diagnosis Acute cholecystitis, cholelithiasis with cystic duct obstruction Post-op Diagnosis Same Procedure Performed Laparoscopic cholecystectomy Surgeon Adam Lott MD Heel Stiffener Zac DANIELS Anesthesia General and Local (0.5% Marcaine with epinephrine) Indications Patient is a 32-year-old woman who has had severe epigastric abdominal pain radiating across both sides of the upper abdomen. She had been in the emergency room for the 2nd time this week yesterday. She could not get comfortable and ultrasound showed gallstones and sludge with a positive sonographic Moran sign. Liver function tests have been normal. She was brought into the hospital for pain management and IV antibiotics. She has continued to be uncomfortable and is taken to surgery now for laparoscopic cholecystectomy Findings Severely inflamed gallbladder with thickened wall and edema consistent with acute and possibly chronic cholecystitis. There was at least 1 large stone in the gallbladder. There was no biliary ductal dilatation. There were no liver abnormalities appreciated. Description of Procedure Patient was taken to surgery and induced into general anesthesia. The abdomen is prepped and draped. Trocars were placed in usual fashion using Cinemagram optical trocars and a 5 mm camera. Once the trocars were in place and we had adequate insufflation, a laparoscopic aspirator was used to decompress the gallbladder. Dark bile was removed the gallbladder which decompressed well. We then retracted the gallbladder anterosuperiorly. Dissection was carried out in the cholecystohepatic triangle. The peritoneum was very thickened and edematous as mentioned above. The dissection showed very hypervascular tissues consistent with acute inflammation as well. We carefully dissected out the cystic duct and cystic artery. The gallbladder was dissected from the liver at its lower 3rd. Cautery was used for hemostasis. Critical view was achieved. We then securely clipped and divided the cystic artery and cystic duct. The gallbladder was then further dissected free from its peritoneal attachments to the liver. Eventually it was completely freed. Some cautery was used on the gallbladder fossa for hemostasis. The gallbladder was then placed in an Endo-Catch bag. Due to the large stones and very thickened wall of the gallbladder, we had to enlarge the epigastric trocar site significantly to accommodate the removal of the gallbladder. Once this was accomplished, we replaced the epigastric trocar then used 2 towel clips to occlude the site so that we could re-insufflated. Liver was then retracted anterosuperiorly. We suctioned away any residual blood and clots. Irrigation suctioning were used repeatedly on the gallbladder fossa and right upper quadrant. Eventually it was quite clear with really no sign of bleeding or other problems. I did review the gallbladder fossa again and did some additional cautery. Irrigation suctioning were again carried out in all looked good. We then evacuated CO2 and removed the trocar sleeves. The fascia at the epigastric trocar site was closed with [id number] mattress suture of 0 Vicryl. The subcutaneous was closed with 3-0 Vicryl suture. Skin was closed with subcuticular interrupted 3-0 Vicryl followed by running 4-0 Monocryl skin suture. The other trocar sites were all closed with running 4-0 Monocryl subcuticular skin closure. The wounds were dressed with Exofin surgical adhesive. The patient was then awakened and taken to recovery in good condition. Sponge and needle counts were correct x2. Estimated Blood Loss -30 Drains No Packing No Pathology Yes (Gallbladder) Complications No immediate complications Condition Stable Disposition PACU [facility] Billing Surgery - Charge Forward: Surgery Billing (Laparoscopic cholecystectomy)
--- NOTE | 2023-05-02 12:22 | PM.DS ---
DS: Admitting Diagnosis Discharge Date 05/02/2023 Admitting Diagnosis Acute on chronic cholecystitis, cholelithiasis DS: Discharge Diagnosis Discharge Diagnosis (1) Cholelithiasis and acute cholecystitis with obstruction: Code(s): K80.01 - Calculus of gallbladder with acute cholecystitis with obstruction Status: Acute DS: Summary Hospital Course Hospital Course: Patient is a 32-year-old woman who has had severe epigastric pain that radiates around under each costal margin. She was in the emergency room on 04/[address] showed gallstones, there was no sign of cholecystitis. She continue to experience pain which became almost constant. She came back to the emergency room on 05/01/2023. She could not experience pain relief. Ultrasound showed gallstones and sludge with evidence of acute cholecystitis and a positive sonographic Moran sign. Liver function tests remain normal both times they were checked. Patient was admitted on 05/01/2023. She was taken to surgery and laparoscopic cholecystectomy was performed on 05/02/2023. She was noted to have acute cholecystitis with a large stone and severe gallbladder inflammation and edema. Following the surgery, she was much improved. She was comfortable on oral analgesics and able to ambulate independently. She was discharged later in the day on 05/02/2023 on ciprofloxacin and analgesics. She will follow up with Dr. Lott in approximately 2 weeks. Status at Discharge Functional status at discharge: independent ambulation Overall status at discharge: patient is progressing back to baseline Time Spent with Patient Time attestation: Total time spent providing and/or coordinating discharge services: Time spent: Less than 30 minutes DS: Data Data Completed and Pending Pending studies at discharge: Pending at discharge 05/02/23 11:11 Surgical [PTH] Routine Labs on day of discharge: Labs from last 24 hours 05/02/23 05/01/23 06:01 15:09 WBC 13.8 H RBC 4.53 Hgb 13.9 Hct 40.0 MCV 88.3 MCH 30.7 MCHC 34.8 RDW 11.9 Plt Count 191 MPV 8.6 Sodium 137 Potassium 3.7 Chloride 106 Carbon Dioxide 24 Anion Gap 7 L BUN 7 Creatinine 0.80 Estim Creat Clear Calc 108 Estimated GFR > 60 Glucose 133 H Calcium 8.1 L Total Bilirubin 1.5 H AST 19 ALT 15 Alkaline Phosphatase 71 Total Protein 7.0 Albumin 3.5 Blood Type O Positive Antibody Screen Negative Discharge Plan Discharge Attending physician on discharge: Adam Lott Consulting providers: Adam Lott Discharging Clinician: Adam Lott. Anticipated Discharge Date/Time: 05/02/23 18:00 Patient Disposition: Home, Self-Care Activity: may shower, no straining and as tolerated Diet: low fat Wound Care Instructions: incision open to air Discharge Instructions: 1. May shower the day after surgery over incisions. 2. Call office for: -Wound increasingly painful or bleeding -Vomiting -Fever of greater than 101 degrees 3. Expect some blood on dressing and old blood on skin. 4. If no bowel movement for three days, take 1 oz. (30 ml) Milk of Magnesia, if no results, take Fleets enema. 5. No heavy lifting > 15-20 pounds for 2 weeks. 6. No driving for 3 days or while taking narcotic pain medications. 7. Up walking 10-30 minutes three times per day. 8. Resume previous home medications. 9. Follow-up 10-14 days in office for wound check or as previously scheduled. 10. Oral pain medications prescription to be sent home with patient. 11. NUTRITION: Start out by drinking fluids and increase your diet as tolerated. If you experience nausea, try dry toast, crackers, and 7-UP. If nausea or vomiting persists, contact your surgeon?s office. Patient Instructions: Antibiotic Form Stand Alone Forms: General Discharge Informat
--- NOTE | 2023-05-02 13:40 | PC.NURSE ---
Patient returned to room 327 from surgery.
[2023-05-02] MEDS: HYDROcodone/acetaminophen (*CRX) 5-325 MG TABLET 1 TAB PO (15:39)
== END 2023-05-02 18:20 | disposition home or self-care (01) ==
LOC: ANHED 11:56 → ANH3MEDSUR 05-02 09:32
PROVIDERS: Admitting Provider Surgery; Emergency Provider General Practice; PCP Nurse Practitioner Family; Visit Provider Surgery
PROC: 0FT44ZZ Resection of Gallbladder, Percutaneous Endoscopic Approach (ICD-10-PCS; CPT 47562; principal; 2023-05-02 10:30)
DX: K80.00 Calculus of gallbladder with acute cholecystitis without obstruction (principal); E66.9 Obesity, unspecified; Z68.38 Body mass index [BMI] 38.0-38.9, adult; Z77.22 Contact with and (suspected) exposure to environmental tobacco smoke (acute) (chronic); Z79.1 Long term (current) use of non-steroidal anti-inflammatories (NSAID); Z79.899 Other long term (current) drug therapy; F10.90 Alcohol use, unspecified, uncomplicated
CPT/HCPCS: 47562; 36415; 76705; 80053; 81001; 81025; 83690; 85025; 85027; 86850; 86900; 86901; 88304; 96361; 96365; 96366; 96367; 96372; 96375; 96376; 99285; A9270; C1713; C9113; G0378; G0379; J0780; J1100; J1170; J1650; J1885; J2250; J2270; J2405; J2543; J2704; J3010; J7120